=== PATIENT | male | born 1965 | race Two or more races ===

== ENCOUNTER → 2024-09-20 | Outpatient (CLI) | payer MEDICARE, SELFPAY ==
[2024-09-20 10:04] LABS: Quantiferon-TB* See Sep Rpt
[2024-09-20 10:35] LABS: Basophils % (Auto) 1 % (0-2.5); Eosinophils # (Auto) 0.1 Thou/mm3 (0.0-0.5); Eosinophils % (Auto) 1 % (0-10); Hematocrit 34.4 % (41.0-53.0); Hemoglobin 11.6 g/dL (13.5-16.0); Immature Granulocytes % (Auto) 0 % (0-0); Immature Granulocytes Auto 0.02 Thou/mm3 (0.00-0.00); Lymphocytes % (Auto) 33 % (10-50); Mean Corpuscular HGB Conc 33.7 g/dl (31.0-37.0); Mean Corpuscular Hemoglobin 30.6 pg (25.0-35.0); Mean Corpuscular Volume 91 fL (80-100); Monocytes # (Auto) 0.5 Thou/mm3 (0.0-0.8); Monocytes % (Auto) 8 % (0-12); Neutrophils # (Auto) 3.4 Thou/mm3 (1.8-7.7); Neutrophils % (Auto) 56 % (37-80); Nucleated Red Blood Cell % 0 /100 WBC (0); Platelet Count 237 Thou/mm3 (140-440); RDW Standard Deviation 41.9 fL (35.1-43.9); Red Blood Count 3.79 Miln/mm3 (4.50-5.90); White Blood Count 6.1 Thou/mm3 (3.8-10.6)
[2024-09-20 10:47] LABS: Glucose Estimated Average 177 mg/dL (80-131); Hemoglobin A1C 7.8 % Hgb (4.8-6.0)
[2024-09-20 10:49] LABS: Creatinine MALB Rnd Ur 97 mg/dL (30-125); Microalbumin Creat Ratio 141 mg/gCrea (<30); Microalbumin, Random Urine 137 mg/L (0-300)
[2024-09-20 10:59] LABS: Vitamin B12 900 pg/mL (211-911)
[2024-09-20 11:00] LABS: Folate > 24.00 ng/mL (>5.38)
[2024-09-20 11:42] LABS: Prostate Specific Antigen < 0.10 ng/mL (0-4.00); Total Iron Binding Capacity 363 mcg/dL (250-425)
[2024-09-20 11:43] LABS: Alanine Aminotransferase 20 U/L (10-49); Albumin, Serum 4.5 gm/dL (3.4-4.8); Albumin/Globulin Ratio 1.6 (1.2-2.2); Alkaline Phosphatase 92 U/L (46-116); Anion Gap 8 (7-16); Aspartate Amino Transferase < 8 U/L (0-34); BUN/Creatinine Ratio 18 Ratio (12-20); Bilirubin,Total 0.4 mg/dL (0.3-1.2); Blood Urea Nitrogen 22 mg/dL (9-23); Calcium 9.2 mg/dL (8.3-10.6); Calcium (Corrected) 9.2 mg/dL (8.5-10.1); Carbon Dioxide 30.6 mMol/L (20.0-31.0); Cardiac Risk Estimate 4.1 RATIO (4.0-6.7); Chloride 101 mMol/L (98-107); Cholesterol 189 mg/dL (132-200); Creatinine (Component) 1.2 mg/dL (0.6-1.3); Free T4 (Free Thyroxine) 1.19 ng/dL (0.89-1.76); Globulin 2.8 gm/dL (2.3-3.5); Glucose 162 mg/dL (74-106); HDL Cholesterol 46 mg/dL (40-60); LDL Cholesterol,Calculated 98 mg/dL (0-130); Osmolality,Calculated 286 (275-295); Sodium 140 mMol/L (136-145); Total Protein 7.3 gm/dL (5.7-8.2); Triglycerides 226 mg/dL (30-150); eGFR > 60 See Note
[2024-09-20 11:51] LABS: Iron 91 mcg/dL (65-175); Percent Iron Saturation 25 % (20-55); Unsaturated Iron Binding 272 (225-295)
[2024-09-26 06:51] LABS: Insulin* 5.7 uIU/mL (< OR = 18.4); Levetiracetam (Keppra)* 27.3 mcg/mL (6.0-46.0); T3 Uptake* 26 % (22-35)
== END | disposition home or self-care (01) ==
PROVIDERS: PCP Nurse Practitioner Family; Referring Provider Nurse Practitioner Family; Visit Provider Nurse Practitioner Family
DX: M19.90 Unspecified osteoarthritis, unspecified site (principal); R56.9 Unspecified convulsions; E78.2 Mixed hyperlipidemia; E11.9 Type 2 diabetes mellitus without complications
CPT/HCPCS: 36415; 80053; 80061; 80177; 82043; 82306; 82570; 82607; 82746; 83036; 83525; 83540; 83550; 84153; 84439; 84443; 84479; 85025; 86480